=== PATIENT | female | born 1980 | race Caucasian/White ===

== ENCOUNTER 2023-10-30 07:30 | Day surgery (SDC) | payer OTHER, SELFPAY ==
[2023-10-29 10:59] LABS: Absolute Lymphocytes (CBC) 1.6 K/uL (0.7-4.9); Absolute Monocytes 0.5 K/uL (0.1-1.3); Absolute Neutrophil 6.6 K/uL (1.8-8.0); Basophils % 0.3 % (0-1.3); Eosinophils % 0.3 % (0-4.4); Hematocrit 36.1 % (36.0-45.0); Hemoglobin 12.1 g/dL (12.0-15.0); Lymphocytes % 18.1 % (15.3-44.8); MCH 30.5 pg (27.0-35.0); MCHC 33.6 g/dL (32.0-36.0); MCV 90.9 fL (80-100); Neutrophils % 75.3 % (41.7-73.7); Platelets 235 thou/uL (152-406); RBC Red Blood Cell Count 3.98 M/uL (3.86-4.86); Red Cell Distribution Width 13.3 % (12.1-15.2)
[2023-10-29 11:10] LABS: PT Prothrombin Time 11.8 SECONDS (9.5-12.5); PTT, Activated Partial Thromb 29.9 SECONDS (24.3-36.9); Protime INR 1.07
[2023-10-29 11:16] LABS: Anion Gap 7.6 mEq/L (5.0-15.0); Potassium 3.6 mEq/L (3.5-5.1)
--- NOTE | 2023-10-29 13:46 | RAD REPORT ---
EXAM DESCRIPTION: RAD - Chest Pa And Lat (2 Views) - 10/29/2023 11:02 am CLINICAL HISTORY: PRE OP [employer]. Hypertension COMPARISON: No comparisons TECHNIQUE: PA and lateral views of the chest were obtained. FINDINGS: The lungs are clear. Heart size is normal and central vasculature is within normal limits. No pleural effusion or pneumothorax seen. No acute bony finding noted. IMPRESSION: No acute cardiopulmonary process.
[2023-10-30] MEDS: NA CHLORIDE 0.9% 500 ML ONE (07:36)
[2023-10-30] MEDS ORDERED: HEPA 1000U/500MLS 2,000 UNIT/1,000 ML BAG IV ONE (08:21)
[2023-10-30] MEDS ORDERED: LIDOCAINE 1% 20 ML MDV ONE (08:21)
[2023-10-30] MEDS ORDERED: VERAPAMIL HCL 10 MG/4 ML VIAL IV ONE (08:22)
[2023-10-30] MEDS ORDERED: FENTANYL CITR 100 MCG/2 ML ONE (08:23)
[2023-10-30] MEDS ORDERED: MIDAZOLAM HCL 2 MG/2 ML INJ ONE (08:23)
[2023-10-30] MEDS ORDERED: HEPARIN 5000 UNIT/ML 1 ML VIAL ONE (08:23)
[2023-10-30 08:27] VITALS: O2SAT 100
[2023-10-30 11:08] VITALS: BP 119/64
--- NOTE | 2023-10-30 16:17 | OP ---
Date of Procedure: 10/30/2023 Surgeon: Ulises Clay Procedures Performed: 1.Coronary angiogram. 2.Left heart catheterization. Indication For Procedures: Unstable angina, abnormal stress test. Sedation Time: 20 minutes. Access: Right radial closed by TR band. Complications: None. Estimated Blood Loss: Less than 10 cc. Description Of Procedures: After risks, and benefits, and alternatives were explained to the patient , patient agreed to proceed with the procedure and signed informed consents. The patient was brought to the director of labor and delivery and prepped and draped in a sterile fashion. Next, the right radial access was obta ined using ultrasound-guided micropuncture. A 6-[place] sheath was inserted. The [place] 4.0 catheter was advanced to the LV cavity over the J-wire. LVEDP was obtained. Pullback did not show any gradie nt. A selective coronary angiogram of the left and right coronary systems were done. At the end of the procedure, catheter was removed and radial sheath was removed and the access was closed with a TR band with no complication. The patient was removed back to recovery in stable condition. Findings: 1.Left main is normal. 2.LAD is normal. 3.Left circ is normal. 4.RCA is normal. Assessment And Plan: Normal coronaries. Plan will be to continue medical management. MELISSA/MOLLY Voice ID: [id number] Report ID: [id number]
--- NOTE | 2023-11-01 16:58 | EKG ---
Test Date: 2023-10-29 Test Time: 10:39:17 Dental Financial Coordinator: LONNIE MEASUREMENT RESULTS: Intervals: Rate: 59 AK: 120 QRSD: 94 QT: 412 QTc: 407 [place]: P: -8 AK: 120 QRS: -42 T: 35 INTERPRETIVE STATEMENTS: Sinus bradycardia with sinus arrhythmia Left axis deviation Low voltage QRS Cannot rule out Anterior infarct, age undetermined Abnormal ECG No previous ECG available for comparison Electronically Signed On 11-01-23 16:46:06 CDT by Bautista Barrera
== END 2023-10-30 11:25 | disposition home or self-care (01) ==
LOC: CCL 07:30
PROVIDERS: ATTEND Internal Medicine
DX: R94.39 Abnormal result of other cardiovascular function study (principal); R07.9 Chest pain, unspecified; I34.0 Nonrheumatic mitral (valve) insufficiency; R03.0 Elevated blood-pressure reading, without diagnosis of hypertension; Z87.891 Personal history of nicotine dependence; Z88.0 Allergy status to penicillin; Z82.49 Family history of ischemic heart disease and other diseases of the circulatory system
CPT/HCPCS: 93005; 85025; 80048; 36415; 83721; 85610; 85730; 71046; 93458; 76937; C1893; Q9966; J1644; J2001; J2250; J3010; J7040; 99152